=== PATIENT | female | born 1980 | race Caucasian/White ===

== ENCOUNTER → 2017-05-25 | Outpatient (CLI) | payer MEDICAID ==
[~2017-05-25] MED LIST: /WARF5TA; ACET65TA; BUTA-198 PO; CETI10TA; CITA20TA4 PO; CLON1TAB PO; COUM10TA; LOVENOX; ONDA4TAB6 PO; OXYC15TA76 PO; PHEN1SUP6 PO; SAVA1TAB5 PO; ZOLP10TA2
[2017-05-25 08:26] LABS: BASO % 0.5 % (0.0-1.0); EOS # 0.2 K/mm3 (0.0-0.50); EOS % 3.4 % (0.0-3.0); LARGE UNSTAINED CELL # 0.1 K/mm3 (0.0-0.4); LARGE UNSTAINED CELL % 1.8 % (0.0-4.0); LYMPH # 1.9 K/mm3 (1.5-4.5); MEAN CORPUSCULAR HEMOGLOBIN 31.4 pg (27.0-33.0); MEAN CORPUSCULAR HGB CONC 34.1 g/dl (32.0-36.5); MEAN CORPUSCULAR VOLUME 91.9 fl (80.0-96.0); MONO # 0.4 K/mm3 (0.0-0.8); MONO % 6.2 % (0.0-5.0); NEUTROPHILS # 3.2 K/mm3 (1.8-7.7); PLATELET COUNT, AUTOMATED 277 k/mm3 (150-450); RED CELL DISTRIBUTION WIDTH 12.2 % (11.5-14.5); WHITE BLOOD COUNT 5.6 K/mm3 (4.0-10.0)
[2017-05-25 08:41] LABS: ALBUMIN 3.8 GM/DL (3.2-5.2); ALBUMIN/GLOBULIN RATIO 1.36 (1.00-1.93); ALKALINE PHOSPHATASE 36 U/L (45-117); ALT/SGPT 16 U/L (12-78); ANION GAP 7 MEQ/L (8-16); AST/SGOT 12 U/L (15-37); BILIRUBIN,TOTAL 0.3 MG/DL (0.2-1.0); BLOOD UREA NITROGEN 15 MG/DL (7-18); CALCIUM LEVEL 8.6 MG/DL (8.5-10.1); CARBON DIOXIDE LEVEL 27 MEQ/L (21-32); CHLORIDE LEVEL 106 MEQ/L (98-107); CHOLESTEROL LEVEL 152 MG/DL (<200); COMPLEMENT C3 106 MG/DL (90-180); COMPLEMENT C4 22.7 MG/DL (10-40); CREATININE FOR GFR 0.52 MG/DL (0.55-1.02); GLOMERULAR FILTRATION RATE > 60.0 (>60); GLUCOSE, FASTING 94 MG/DL (70-105); POTASSIUM SERUM 4.3 MEQ/L (3.5-5.1); SODIUM LEVEL 140 MEQ/L (136-145); TOTAL PROTEIN 6.6 GM/DL (6.4-8.2); TRIGLYCERIDES LEVEL 50 MG/DL (<150)
[2017-05-25 10:35] LABS: ERYTHROCYTE SEDIMENTATION RATE 14 mm/hr (0-20)
[2017-05-26 14:14] LABS: SJOGREN'S ANTI SS-A <0.2 AI (0.0-0.9); SJOGREN'S ANTI SS-B <0.2 AI (0.0-0.9)
== END ==
LOC: M LAB 07:33
PROVIDERS: ATTEND Physician Assistant Medical
DX: Z13.220 Encounter for screening for lipoid disorders (principal)

== ENCOUNTER 2017-07-05 11:32 | Emergency (ER) | payer MEDICAID ==
[~2017-07-05] VITALS: Ht 160 cm; Wt 70.2 kg
[~2017-07-05 11:32] MED LIST changes: -BUTA-198 PO; -CETI10TA; -CITA20TA4 PO; -CLON1TAB PO; -ONDA4TAB6 PO; -OXYC15TA76 PO; -PHEN1SUP6 PO; -SAVA1TAB5 PO; -ZOLP10TA2
[2017-07-05] MEDS ORDERED: BUTA-198 PO (11:59)
[2017-07-05] MEDS ORDERED: ONDA4TAB6 PO (11:59)
[2017-07-05] MEDS ORDERED: CETI10TA (11:59)
[2017-07-05] MEDS ORDERED: CITA20TA4 PO (11:59)
[2017-07-05] MEDS ORDERED: OXYC15TA76 PO (11:59)
[2017-07-05] MEDS ORDERED: CLON1TAB PO (11:59)
[2017-07-05] MEDS ORDERED: SAVA1TAB5 PO (11:59)
[2017-07-05] MEDS ORDERED: ZOLP10TA2 (11:59)
[2017-07-05] MEDS ORDERED: PROMETHAZINE INJ 25 MG/ML VIAL (J2550) IV ONE (13:15)
[2017-07-05 13:54] LABS: BASO % 0.5 % (0.0-1.0); EOS # 0.1 K/mm3 (0.0-0.50); EOS % 1.6 % (0.0-3.0); LARGE UNSTAINED CELL # 0.1 K/mm3 (0.0-0.4); LARGE UNSTAINED CELL % 2.1 % (0.0-4.0); LYMPH # 1.9 K/mm3 (1.5-4.5); LYMPH % 32.8 % (24.0-44.0); MEAN CORPUSCULAR HEMOGLOBIN 31.2 pg (27.0-33.0); MEAN CORPUSCULAR HGB CONC 33.8 g/dl (32.0-36.5); MEAN CORPUSCULAR VOLUME 92.2 fl (80.0-96.0); MONO # 0.3 K/mm3 (0.0-0.8); NEUTROPHILS # 3.3 K/mm3 (1.8-7.7); PLATELET COUNT, AUTOMATED 326 k/mm3 (150-450); RED CELL DISTRIBUTION WIDTH 11.9 % (11.5-14.5); WHITE BLOOD COUNT 5.7 K/mm3 (4.0-10.0)
[2017-07-05] MEDS ORDERED: MECLIZINE 25 MG TABLET PO ONE (14:15)
[2017-07-05] MEDS ORDERED: NS 1,000 ML IV ONE (14:15)
[2017-07-05] MEDS ORDERED: ACETAMINOPHEN 325 MG TAB PO ONE (14:15)
[2017-07-05 14:17] LABS: BLOOD UREA NITROGEN 12 MG/DL (7-18); CREATININE FOR GFR 0.45 MG/DL (0.55-1.02); GLOMERULAR FILTRATION RATE > 60.0 (>60); GLUCOSE, FASTING 89 MG/DL (70-105)
[2017-07-05 14:18] LABS: ALBUMIN 4.3 GM/DL (3.2-5.2); ALKALINE PHOSPHATASE 43 U/L (45-117); ALT/SGPT 33 U/L (12-78); ANION GAP 5 MEQ/L (8-16); AST/SGOT 15 U/L (15-37); BILIRUBIN,DIRECT < 0.1 MG/DL (0.0-0.2); BILIRUBIN,TOTAL 0.3 MG/DL (0.2-1.0); CALCIUM LEVEL 9.2 MG/DL (8.5-10.1); CARBON DIOXIDE LEVEL 30 MEQ/L (21-32); CHLORIDE LEVEL 108 MEQ/L (98-107); POTASSIUM SERUM 3.6 MEQ/L (3.5-5.1); SODIUM LEVEL 143 MEQ/L (136-145); TOTAL PROTEIN 7.6 GM/DL (6.4-8.2)
[2017-07-05 14:24] LABS: METHADONE URINE NEGATIVE (NEGATIVE)
[2017-07-05] MEDS ORDERED: PHEN1SUP6 PO (14:57)
--- NOTE | 2017-07-05 15:28 | REP ---
CT BRAIN WITHOUT CONTRAST: 07/05/2017. CLINICAL HISTORY: Dizziness, headache. On anticoagulation. COMPARISON: 03/06/2011. FINDINGS: Soft tissue and bone windows are reviewed for each slice level. The soft tissue and bone windows show lateral ventricles midline, symmetric and the without dilatation or displacement. Basal ganglia are generally symmetric. There are a few subtle areas of hypodense white matter change that may reflect some mild small vessel white matter change. I do not see vascular territory infarct, hemorrhage, mass, mass effect or edema. There may be very slight loss of the cortex suggesting minimal atrophy but greater than I would expect for age. There is no vascular territory infarct, hemorrhage, mass, mass effect or edema. The brainstem was unremarkable. The cerebellum shows no atrophy. There is a tiny hypodensity in the left cerebellar hemisphere that may be an old lacunar infarct. I do not see hemorrhage or definite acute infarct. Basal cisterns were intact. The mastoids and visualized sinuses were clear. Skull base and calvarium show no fracture or focal lesion. Impression: 1. There is some very minimal cortical atrophy suggested and mild heterogeneous white matter. NO acute infarct, hemorrhage, mass or mass effect. 2. 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 No hemorrhage posterior fossa or elsewhere. 3. The sinuses, mastoids, skull base and calvarium all intact. Signed by Alo Abbasi MD 07/05/2017 04:09 P
[2017-07-05 15:37] VITALS: BP 100/58
== END 2017-07-05 15:44 | disposition home or self-care (01) ==
LOC: M ED 11:32
DX: R42 Dizziness and giddiness (principal); R11.2 Nausea with vomiting, unspecified; Z79.899 Other long term (current) drug therapy; Z88.1 Allergy status to other antibiotic agents; Z88.2 Allergy status to sulfonamides; L23.1 Allergic contact dermatitis due to adhesives; F41.9 Anxiety disorder, unspecified; Z86.718 Personal history of other venous thrombosis and embolism

== ENCOUNTER 2018-05-31 12:36 | Emergency (ER) | payer OTHER, MEDICAID ==
[2018-05-31] MEDS: LORazepam 2 MG TAB PO (14:16)
== END 2018-05-31 15:37 | disposition home or self-care (01) ==
LOC: M ED 12:36
DX: Z76.0 Encounter for issue of repeat prescription (principal); F41.9 Anxiety disorder, unspecified; K21.9 Gastro-esophageal reflux disease without esophagitis; R51 Headache; M79.7 Fibromyalgia; M32.9 Systemic lupus erythematosus, unspecified; Z88.2 Allergy status to sulfonamides; Z91.048 Other nonmedicinal substance allergy status; Z79.899 Other long term (current) drug therapy; Z79.01 Long term (current) use of anticoagulants
CPT/HCPCS: 99284

== ENCOUNTER → 2018-08-22 | Outpatient (REF) | payer OTHER ==
[2018-08-22 19:46] LABS: BASO # 0.1 10^3/uL (0.0-0.2); BASO % 0.6 % (0.0-1.0); EOS # 0.3 10^3/uL (0.0-0.50); EOS % 2.8 % (0.0-3.0); HEMATOCRIT 42.8 % (36.0-47.0); HEMOGLOBIN 14.4 g/dl (12.0-15.5); IMMATURE GRANULOCYTE % 0.2 % (0-3.0); LYMPH # 2.1 10^3/uL (1.5-4.5); MEAN CORPUSCULAR HEMOGLOBIN 30.3 pg (27.0-33.0); MEAN CORPUSCULAR HGB CONC 33.6 g/dl (32.0-36.5); MEAN CORPUSCULAR VOLUME 90.1 fl (80.0-96.0); MONO # 0.6 10^3/uL (0.0-0.8); NEUTROPHILS # 5.8 10^3/uL (1.8-7.7); NEUTROPHILS % 65.4 % (36.0-66.0); PLATELET COUNT, AUTOMATED 369 10^3/uL (150-450); RED BLOOD COUNT 4.75 10^6/uL (4.00-5.40); WHITE BLOOD COUNT 8.9 10^3/uL (4.0-10.0)
[2018-08-22 20:00] LABS: ESTIMATED AVERAGE GLUCOSE 103 MG/DL (60-110); HEMOGLOBIN A1c 5.2 %
[2018-08-22 20:02] LABS: ALBUMIN 4.6 GM/DL (3.2-5.2); ALBUMIN/GLOBULIN RATIO 1.21 (1.00-1.93); ALKALINE PHOSPHATASE 58 U/L (45-117); ALT/SGPT 13 U/L (12-78); ANION GAP 8 MEQ/L (8-16); AST/SGOT 8 U/L (7-37); BILIRUBIN,TOTAL 0.6 MG/DL (0.2-1.0); BLOOD UREA NITROGEN 12 MG/DL (7-18); CALCIUM LEVEL 9.3 MG/DL (8.5-10.1); CARBON DIOXIDE LEVEL 25 MEQ/L (21-32); CHLORIDE LEVEL 104 MEQ/L (98-107); CHOLESTEROL LEVEL 232 MG/DL (<200); CHOLESTEROL RISK RATIO 3.362 (<5); CREATININE FOR GFR 0.56 MG/DL (0.55-1.30); GLOMERULAR FILTRATION RATE > 60.0 (>60); GLUCOSE, FASTING 79 MG/DL (70-100); HDL CHOLESTEROL 69 MG/DL (>40); LDL CHOLESTEROL 151 MG/DL (<100); NON-HDL-C 163 MG/DL; POTASSIUM SERUM 4.1 MEQ/L (3.5-5.1); SODIUM LEVEL 137 MEQ/L (136-145); TOTAL PROTEIN 8.4 GM/DL (6.4-8.2); TRIGLYCERIDES LEVEL 59 MG/DL (<150)
== END ==
LOC: M LAB REF 18:36
DX: Z13.9 Encounter for screening, unspecified (principal)
CPT/HCPCS: 84443

== ENCOUNTER → 2018-09-10 | Outpatient (REF) | payer OTHER, MEDICARE ==
[2018-09-20 14:42] LABS: SUMMARY SEE SEPARATE REPORT
== END ==
LOC: M LAB REF 12:42
DX: F41.8 Other specified anxiety disorders (principal)

== ENCOUNTER → 2018-10-26 | Outpatient (REF) | payer OTHER, MEDICARE ==
[~2018-10-26] MED LIST changes: +AMBI12.52 PO; +ATIV2TAB PO; +BUPR150T3 PO; +BUTA-198 PO; +CETI10TA; +CITA20TA4 PO; +CLON1TAB8 PO; +ESZO1TAB5 PO; +LYRI200C PO; +ONDA4TAB6 PO; +OXYC15TA76 PO; +OXYM10TA PO; +PHEN1SUP6 PO; +PROC5TA PO; +SAVA1TAB5 PO; +XARE10TA PO; +ZOLP10TA2
== END ==
LOC: M LAB REF 11:44
PROVIDERS: ATTEND Psychiatry & Neurology Child & Adolescent Psychiatry
DX: R52 Pain, unspecified (principal)

== ENCOUNTER → 2018-11-07 | Outpatient (REF) | payer OTHER, MEDICARE ==
[2018-11-07 15:16] LABS: ALT/SGPT 30 U/L (12-78); BILIRUBIN,TOTAL 0.4 MG/DL (0.2-1.0); BLOOD UREA NITROGEN 8 MG/DL (7-18); C REACTIVE PROTEIN QUANTITATIV < 0.30 MG/DL (0.00-0.30); CALCIUM LEVEL 8.8 MG/DL (8.5-10.1); CARBON DIOXIDE LEVEL 29 MEQ/L (21-32); CHLORIDE LEVEL 104 MEQ/L (98-107); CREATININE FOR GFR 0.64 MG/DL (0.55-1.30); FREE THYROXINE INDEX 3.3 % (1.3-4.8); GLOMERULAR FILTRATION RATE > 60.0 (>60); GLUCOSE, FASTING 92 MG/DL (70-100); POTASSIUM SERUM 4.4 MEQ/L (3.5-5.1); SODIUM LEVEL 138 MEQ/L (136-145); T UPTAKE 32 % (30-39); THYROXINE (T4) 10.4 UG/DL (4.5-12.0); TOTAL PROTEIN 7.5 GM/DL (6.4-8.2)
[2018-11-07 15:37] LABS: THYROID PEROXIDASE ANTIBODY < 28.0 U/ML (<60.0)
[2018-11-08 10:34] LABS: THRYOGLOBULIN ANTIBODIES (ATA) < 1.0 IU/mL (0.0-0.9); THYROGLOBULIN QUANTITATIVE 8.8 ng/mL (1.5-38.5)
== END ==
LOC: M LAB REF 14:30
PROVIDERS: ATTEND Psychiatry & Neurology Child & Adolescent Psychiatry
DX: F41.0 Panic disorder [episodic paroxysmal anxiety] (principal); R52 Pain, unspecified

== ENCOUNTER → 2019-01-10 | Outpatient (CLI) | payer OTHER, MEDICARE ==
--- NOTE | 2019-01-21 15:23 | SLEEPCENT ---
DATE OF PROCEDURE: 01/10/2019 REFERRING PROVIDER: Dr. Juliocesar Nicholas INTERPRETATION: Nocturnal polysomnography was performed for the evaluation of sleep apnea syndrome symptoms consisting of insomnia, snoring, observed apnea, and nonrestorative sleep. A total of 7 hours and 27 minutes of data was reviewed with 359.5 minutes of sleep identified. Sleep latency was 45 minutes. Rapid eye movement (REM) latency was 211 minutes. All stages of sleep were observed. Sleep efficiency was 81.4%. EKG showed normal sinus rhythm with an average heart rate of 80 beats per minute. No epileptiform discharge observed. There were 8 respiratory events identified of 10 seconds in duration or longer for an apnea hypopnea index (AHI) of 1.3. The events were predominantly obstructive apnea/hypopnea. Respiratory effort related arousals (RERA) index was 0.7 giving a total respiratory disturbance index (RDI) of 2.0. Mean oxygen saturation for the study was 96% with a minimum recorded value of 92%. Arousal index was 3.3. Periodic limb index was 18.7. IMPRESSION: 1. Snoring, no evidence of significant sleep disorder breathing. Study limited in that no supine sleep observed. 2. Periodic limb movement, mild. RECOMMENDATIONS: I recommend consideration be given to other potential causes for her symptoms including but not limited to narcolepsy, medications, sleep insufficiency, or other.
== END ==
LOC: M SLEEP 19:27
PROVIDERS: ATTEND Internal Medicine Pulmonary Disease
DX: G47.61 Periodic limb movement disorder (principal); R06.83 Snoring

== ENCOUNTER → 2019-02-12 | Outpatient (CLI) | payer OTHER ==
[~2019-02-12] MED LIST changes: -/WARF5TA; -CITA20TA4 PO; +CITA20TA6 PO; +COUM1TAB17
--- NOTE | 2019-02-12 15:32 | REP ---
MR Brain without contrast HISTORY: Infarction COMPARISON : MR 10/19/[address] 07/05/2017 There are no areas of abnormal signal intensity in the brain. There is no intraparenchymal hemorrhage, infarct, mass or midline shift. The ventricular system is normal in appearance. The ventricular system and cortical sulci are dilated consistent with minimal volume loss. There is no extra cerebral collection. Mucosal thickening is present in the maxillary sinuses. IMPRESSION: Minimal volume loss. Electronically Signed by Mike Rodríguez MD 02/12/2019 03:24 P
== END ==
LOC: M RAD 13:07
PROVIDERS: ATTEND Internal Medicine Hematology & Oncology
DX: D68.62 Lupus anticoagulant syndrome (principal); R90.89 Other abnormal findings on diagnostic imaging of central nervous system

== ENCOUNTER → 2019-02-21 | Outpatient (CLI) | payer OTHER, MEDICARE ==
[~2019-02-21] MED LIST changes: +ENOX40IN3 PO
[2019-02-26 00:06] LABS: BETA 2 MICROGLOBULIN 0.9 mg/L (0.6-2.4); HOMOCYST(E)INE SERUM 7.5 umol/L (0.0-15.0)
== END ==
LOC: M LAB 16:15
PROVIDERS: ATTEND Internal Medicine Hematology & Oncology
DX: R53.83 Other fatigue (principal); G43.009 Migraine without aura, not intractable, without status migrainosus; D68.59 Other primary thrombophilia

== ENCOUNTER → 2019-04-22 | Outpatient (CLI) | payer OTHER, MEDICARE ==
[2019-04-22 11:21] LABS: AMORPHOUS SEDIMENT SMALL (NEGATIVE); APPEARANCE, URINE HAZY (CLEAR); BACTERIA, URINE AUTO NEGATIVE (NEGATIVE); BILIRUBIN, URINE AUTO NEGATIVE (NEGATIVE); BLOOD, URINE BLOOD 1+ (NEGATIVE); COLOR, URINE YELLOW (YELLOW); GLUCOSE, URINE (UA) AUTO NEGATIVE (NEGATIVE); KETONE, URINE AUTO NEGATIVE (NEGATIVE); LEUKOCYTE ESTERASE, URINE AUTO NEGATIVE (NEGATIVE); NITRITE, URINE AUTO NEGATIVE (NEGATIVE); PROTEIN, URINE AUTO NEGATIVE (NEGATIVE); RBC, URINE AUTO 2 /HPF (0-3); SPECIFIC GRAVITY URINE AUTO 1.011 (1.002-1.035); SQUAMOUS EPITHELIAL CELL UR AU 2 /HPF (0-6); UROBILINOGEN, URINE AUTO 0.2 mg/dL (0.0-2.0); WBC, URINE AUTO 1 /HPF (0-3)
[2019-04-22 11:27] LABS: BASO % 0.4 % (0.0-1.0); EOS # 0.3 10^3/uL (0.0-0.50); EOS % 2.9 % (0.0-3.0); HEMATOCRIT 39.2 % (36.0-47.0); HEMOGLOBIN 12.9 g/dl (12.0-15.5); LYMPH # 1.5 10^3/uL (1.5-4.5); LYMPH % 15.3 % (24.0-44.0); MEAN CORPUSCULAR HEMOGLOBIN 31.5 pg (27.0-33.0); MEAN CORPUSCULAR HGB CONC 32.9 g/dl (32.0-36.5); MEAN CORPUSCULAR VOLUME 95.6 fl (80.0-96.0); MONO # 0.7 10^3/uL (0.0-0.8); MONO % 7.4 % (0.0-5.0); NEUTROPHILS # 7.1 10^3/uL (1.8-7.7); NEUTROPHILS % 73.7 % (36.0-66.0); PLATELET COUNT, AUTOMATED 329 10^3/uL (150-450); WHITE BLOOD COUNT 9.7 10^3/uL (4.0-10.0)
[2019-04-22 11:43] LABS: HEMOGLOBIN A1c 5.5 %
[2019-04-22 11:51] LABS: ERYTHROCYTE SEDIMENTATION RATE 15 mm/hr (0-20)
[2019-04-22 12:21] LABS: ALBUMIN 3.7 GM/DL (3.2-5.2); ALT/SGPT 16 U/L (12-78); BILIRUBIN,TOTAL 0.5 MG/DL (0.2-1.0); BLOOD UREA NITROGEN 9 MG/DL (7-18); CARBON DIOXIDE LEVEL 28 MEQ/L (21-32); CHLORIDE LEVEL 108 MEQ/L (98-107); CHOLESTEROL LEVEL 171 MG/DL (<200); CHOLESTEROL RISK RATIO 2.111 (<5); COMPLEMENT C3 113 MG/DL (90-180); COMPLEMENT C4 30 MG/DL (10-40); CREATININE FOR GFR 0.59 MG/DL (0.55-1.30); FREE T4 0.92 NG/DL (0.76-1.46); GLOMERULAR FILTRATION RATE > 60.0 (>60); GLUCOSE, FASTING 91 MG/DL (70-100); HDL CHOLESTEROL 81 MG/DL (>40); LDL CHOLESTEROL 80 MG/DL (<100); NON-HDL-C 90 MG/DL; RHEUMATOID FACTOR QUANT < 10.0 IU/ML (<15.0); SODIUM LEVEL 141 MEQ/L (136-145); TOTAL 25(OH) VITAMIN D 20.1 NG/ML (30.0-100.0); TOTAL PROTEIN 7.1 GM/DL (6.4-8.2); TRIGLYCERIDES LEVEL 49 MG/DL (<150)
[2019-04-27 00:09] LABS: ANTI DOUBLE STRAND-DNA AB <1 IU/mL (0-9); ANTI DS-DNA AB <1:10 titer (.); ANTINUCLEAR ANTIBODIES DIRECT Positive (Negative); COMPLEMENT TOTAL (CH50) 57 U/mL (>41); CYCLIC CITRULLINATED PEPTIDE 3 units (0-19); HLA-B27 Negative (.); Lyme Disease IgG/IgM Antibodie <0.91 ISR (0.00-0.90); Lyme Disease IgM Ab Quantitati <0.80 index (0.00-0.79); SJOGREN'S ANTI SS-A <0.2 AI (0.0-0.9); SJOGREN'S ANTI SS-B <0.2 AI (0.0-0.9); SMITH ANTIBODIES <0.2 AI (0.0-0.9)
== END ==
LOC: M LAB 10:17
PROVIDERS: ATTEND Family Medicine
DX: Z13.228 Encounter for screening for other metabolic disorders (principal); M25.50 Pain in unspecified joint

== ENCOUNTER → 2019-07-05 | Outpatient (REF) | payer OTHER, MEDICARE ==
[2019-07-05 13:28] LABS: AMORPHOUS SEDIMENT SMALL (NEGATIVE); APPEARANCE, URINE HAZY (CLEAR); BACTERIA, URINE AUTO NEGATIVE (NEGATIVE); BILIRUBIN, URINE AUTO NEGATIVE (NEGATIVE); BLOOD, URINE BLOOD NEGATIVE (NEGATIVE); COLOR, URINE YELLOW (YELLOW); GLUCOSE, URINE (UA) AUTO NEGATIVE (NEGATIVE); KETONE, URINE AUTO NEGATIVE (NEGATIVE); LEUKOCYTE ESTERASE, URINE AUTO NEGATIVE (NEGATIVE); MUCUS, URINE MODERATE (NEGATIVE); NITRITE, URINE AUTO NEGATIVE (NEGATIVE); PROTEIN, URINE AUTO 1+ mg/dL (NEGATIVE); RBC, URINE AUTO 2 /HPF (0-3); SPECIFIC GRAVITY URINE AUTO 1.015 (1.002-1.035); SQUAMOUS EPITHELIAL CELL UR AU 2 /HPF (0-6); UROBILINOGEN, URINE AUTO 0.2 mg/dL (0.0-2.0); WBC, URINE AUTO 2 /HPF (0-3)
== END ==
LOC: M SMT 13:04
PROVIDERS: ATTEND Urology
DX: R31.29 Other microscopic hematuria (principal)

== ENCOUNTER → 2019-09-16 | Outpatient (CLI) | payer OTHER ==
[~2019-09-16] MED LIST changes: +CHOL100029 PO; +CYCL10TA PO; +EMGA120I SC; +IMIT6KIT SC
--- NOTE | 2019-09-16 12:20 | REP ---
NUCLEAR GASTRIC EMPTYING SCAN: Following the oral administration of 1.05 mCi of technetium-99m sulfur colloid in two scrambled eggs and 6 ounces of water multiple images of the upper abdomen performed in the anterior and posterior projections for 90 minutes. At the end of 90 minutes 22% of the ingested activity has emptied from the stomach. The T1/2 is calculated to be 202 minutes. A normal T1/2 is 90 minutes. IMPRESSION: Moderate delay in gastric emptying. Electronically Signed by Howard Vazquez MD 09/16/2019 02:56 P
== END ==
LOC: M RAD 09:04
PROVIDERS: ATTEND Internal Medicine Gastroenterology
DX: R11.2 Nausea with vomiting, unspecified (principal); K31.84 Gastroparesis; K30 Functional dyspepsia
CPT/HCPCS: 78264; A9541

== ENCOUNTER → 2019-10-15 | Outpatient (POV) | payer OTHER ==
[~2019-10-15] VITALS: Ht 160 cm; Wt 64.1 kg
[2019-10-15 10:54] VITALS: BP 116/56
--- NOTE | 2019-10-15 11:06 | GIPN ---
[facility] GI Progress Note GI Progress Note DATE: Oct 15, 2019 Primary physician/ referring physician: Shun Rodríguez MD, Reason for consult: abdominal pain. HPI: 39 year old female patient with fibromyalgia, RA, lupus with multiple recurrent left leg DVT ( on life long Xarelto), was referred from PCP clinic for abdominal pain. Patient reports having epigastric pain with feeling with food sitting in the epigastric area and then she had to vomit to clear it. patient also reports it more prominent with certain foods ( mashed potatoes, etc), and it causes severe pain relieved after vomiting ( usually spontaneous but sometimes induced), no blood in vomit and no prior h/o acid reflux. Patient also reports chronic constipation with bowel movements once every 2 weeks, with hard stools and sometimes on wiping notices blood in stools. Patient also reports unintentional weight loss -- over 40 pounds over the last 4 months. Patient underwent EGD and Colonoscopy report below, noted no H. pylori, non- specific chronic inflammation in colon and food residue in stomach. Later patient had Gastric emptying study, which showed gastroparesis. Follow up 10/15/2019: Today patient is coming for follow up of the test results and review of symptoms. Patient reports still having constipation, upto 3-4 weeks sometimes when not taking laxatives. Patient reports taking miralax and intermittently taking dulcolax for bowel movements. Patient stopped taking omeprazole. Patient denies any further weight loss since her last visit. Patient is currently on cardiac loop recorder. Pertinent negative GI symptoms: Patient denies diarrhea, loss of appetite, early satiety or unintentional weight loss. No history of hematemesis, melena Prior work up and follow ups: 09/16/19 GES Moderate delay in gastric emptying. 08/30/19 210 EGD/ Colonoscopy done for nausea, vomiting, abdominal pain, constipation and weight loss noted food residue in stomach, rest of EGD was normal. Colonoscopy showed moderate inflammation in cecum, and fair bowel prep. Biopsies showed non-specific chronic inflammation. 07/18/19 210 GI initial consult 05/04/19 - Referral To [facility] / GI 04/22/19 - CMP, Lipid -- Normal BN/creatinine, liver panel. 04/22/19 - Lab Result -- Normal H/H, PLT 04/22/19 - Hgba1c -- normal. Pertinent negative GI symptoms: Patient denies fever, sick contacts, recent travel, nausea, vomiting, diarrhea, abdominal pain, loss of appetite, early satiety or unintentional weight loss. No history of hematemesis, melena or hematochezia. Patient reports regular bowel movements. Review of Systems: GI: as stated above CVS: No chest pain, No palpitations, No leg swelling. RS: No Shortness of breath, No Wheezing, no cough HOG CONFINEMENT SYSTEM MANAGER: No dizziness, No motor weakness, No sensory problems Hematology: No bruising, No gum bleeding, Musculoskeletal: No joint pain, ambulating well. Skin: No rash : No hematuria, No burning sensation of the urine ENT: No ear discharge/ pain, No dysphagia. Eyes: No photophobia. Jaundice Home medications: reviewed. Antithrombotic agents Xarelto 20 mg daily. Allergies: Allergic to sulfa and raspberries. Medical h/o: As above. Surgical h/o: Hysterectomy in 2009 Social h/o: Alcohol social 2-3 times a month, smoking Denies , IVDA/ drugs Denies. Family h/o of GI cancers - None Prior Endoscopies: as above. Prior GI evaluations: as above. Exam: Vitals: reviewed General: Alert and oriented x 3, not in distress HEENT: NO pallor, no icterus. Normal oropharynx, No cervical lymph nodes. Chest: symmetric with bilateral clear air entry, CVS: S1, S2 heard, normal, no murmurs . Abdomen: non-distended, no surgical scars, soft, non-tender, no palpable masses, normal bowel sounds heard. Rectal exam: Patient refused / Deferred at this time in view of scheduled colonoscopy. Extremities: no pedal edema, pulses palpable. HOG CONFINEMENT SYSTEM MANAGER: no focal motor or sensory deficits. Moves all extremities Skin: no rash. Labs: No prior labs ordered by me. Imaging: reviewed. Impression: 1. K31.84 Gastroparesis 2. R10.13 Epigastric pain 3. R11.2 Nausea with vomiting, unspecified 4. K59.00 Constipation, unspecified Recommendations: -- Educated patient about all possible differential diagnosis and all questions answered. -- Printed material about the dietary management information for gastroparesis given to patient. -- Will obtain labs to evaluate for scleroderma and sarcoidosis. ( SCL 70 , anti-centromere, and sarcoid panel) along with celiac panel. -- Will continue on Omeprazole 40 mg daily -- to be taking back wedger on empty stomach for total of 8 weeks. Also take as needed Zofran for nausea. -- For chronic constipation, will give senna and colace- new scripts sent to pharmacy. -- Patient to telephone GI clinic in 2-3 weeks to review the results and clinical symptoms, and to adjust medications ( discussed about the Linzess and its indications and risks if the current medications does not work). -- Return to GI clinic in 2 months for routine follow up. -- Follow up with PMD for routine medical care and other age appropriate health maintenance. Plan of care discussed with patient. Patient verbalized understanding and agreed with the plan. Allergies Coded Allergies: TAPE (Verified Allergy, Intermediate, rash, 08/16/19) adhesive raspberry (Verified Allergy, Intermediate, hives, swollen tongue, 08/16/19) Sulfa (Sulfonamide Antibiotics) (Verified Adverse Reaction, Intermediate, hives, 08/16/19) Current Medications New scripts were sent to patient pharmacy using [employer]. VS,Fishbone, I+O VS, Fishbone, I+O Vital Signs Date Time Temp Pulse Resp B/P (MAP) Pulse Ox O2 Delivery O2 Flow Rate FiO2 10/15/19 10:54 98.9 100 17 116/56 (76) 100 Room Air NEGRITA ALMANZA MD Oct 15, 2019 11:06
== END ==
LOC: M GI 10:44
PROVIDERS: ATTEND Internal Medicine Gastroenterology
DX: K31.84 Gastroparesis (principal); R10.13 Epigastric pain; R11.2 Nausea with vomiting, unspecified; K59.00 Constipation, unspecified; Z79.899 Other long term (current) drug therapy

== ENCOUNTER → 2019-11-01 | Outpatient (CLI) | payer OTHER ==
[2019-11-01 13:20] LABS: BASO # 0.1 10^3/uL (0.0-0.2); BASO % 0.8 % (0.0-1.0); EOS # 0.4 10^3/uL (0.0-0.5); HEMOGLOBIN 12.2 g/dl (12.0-15.5); LYMPH # 2.3 10^3/uL (1.5-5.0); LYMPH % 37.6 % (24.0-44.0); MEAN CORPUSCULAR HEMOGLOBIN 30.1 pg (27.0-33.0); MEAN CORPUSCULAR VOLUME 91.4 fl (80.0-96.0); MONO # 0.5 10^3/uL (0.0-0.8); MONO % 7.4 % (0.0-5.0); PLATELET COUNT, AUTOMATED 349 10^3/uL (150-450); RED BLOOD COUNT 4.05 10^6/uL (4.00-5.40); WHITE BLOOD COUNT 6.2 10^3/uL (4.0-10.0)
[2019-11-01 13:52] LABS: ALBUMIN 4.1 GM/DL (3.2-5.2); ALT/SGPT 12 U/L (12-78); BILIRUBIN,DIRECT 0.1 MG/DL (0.0-0.2); BILIRUBIN,TOTAL 0.3 MG/DL (0.2-1.0); CREATININE FOR GFR 0.64 MG/DL (0.55-1.30); GLOMERULAR FILTRATION RATE > 60.0 (>60); TOTAL PROTEIN 7.4 GM/DL (6.4-8.2)
[2019-11-01 16:02] LABS: H PYLORI QUALITATIVE IgG NEGATIVE (NEGATIVE)
[2019-11-01 16:03] LABS: TOTAL 25(OH) VITAMIN D 51.8 NG/ML (30.0-100.0)
== END ==
LOC: M LAB 12:08
PROVIDERS: ATTEND Internal Medicine Gastroenterology
DX: K31.84 Gastroparesis (principal); R10.13 Epigastric pain; R11.2 Nausea with vomiting, unspecified